=== PATIENT | female | born 1955 | race Caucasian/White ===

== ENCOUNTER → 2017-02-08 | Outpatient (CLI) | payer BC ==
[~2017-02-08] MED LIST: ALLOPURINOL5 GM; ASPIRIN81 M2; LASIX80 MG; VOLTAREN75 MG PO; ZESTRIL2.5 MG
--- NOTE | ~2017-02-08 | CT2 ---
[facility] A Service of [facility] & [facility] RADIOLOGY TEXT RESULTS PATIENT: LORA AGUILERA LOCATION: [facility] : 55 UNIT #: [id number] AGE: [address]: CHITRA LEBRON MD SEX: F ORDER DR: [id number] [address] [address] [id number] MR#: [id number] #: [id number] NAME: LORA AGUILERA : 1955 SEX: F STUDY DATE/TIME: 02/08/2017 16:43 UNIT: [facility] ROOM: STUDY DESCRIPTION: CT Abd and Pelv W Cont Attending Physician: Sol Lebron M.D. Referring Physician: Sol Lebron M.D. Ordering Physician: Sol Lebron M.D. Primary Care Physician: Sol Leborn M.D. MEDICAL IMAGING REPORT This report is preliminary unless electronic signature is present. EXAM CT abdomen and pelvis, 02/08/2017 HISTORY Left lower quadrant pain for 2 days. Gout, high blood pressure, cholecystectomy, tubal ligation. TECHNIQUE CT abdomen and pelvis performed with intravascular administration 100 mL Isovue-370. Enteric contrast also administered. This CT exam was performed with one or more of the following radiation dose reduction techniques: Automatic exposure control, adjustment of mA and/or kV according to patient size, and iterative reconstruction. COMPARISON 11/28/2013 FINDINGS The lung bases are clear. Heart upper limits of normal in size. Liver unremarkable. Status post cholecystectomy. No biliary ductal dilatation. Spleen and small accessory spleen stable. The pancreas is unremarkable. Indeterminate approximately 1 cm relatively hypodense nodule in the left adrenal body more conspicuous than on prior examination. Not clearly an adenoma on basis of this study alone. Lack of any significant change in size from prior examination favors benign etiology. Best fully characterized with adrenal-protocol MRI, if patient is candidate, or adrenal-protocol CT. Right adrenal gland unremarkable. Bilateral kidneys unremarkable. CT PELVIS: No inguinal adenopathy. Urinary bladder, uterus, adnexal regions unremarkable. No pelvic or retroperitoneal adenopathy. Distal esophagus, stomach, small bowel, appendix normal. Near pancolonic STS. [facility] A Service of [facility] RADIOLOGY TEXT RESULTS PATIENT: LORA AGUILERA LOCATION: [facility] : 55 UNIT #: [id number] AGE: [address]: CHITRA LEBRON MD SEX: F ORDER DR: diverticulosis most pronounced in the left hemicolon. In the distal descending colon, there is a focally inflamed diverticulum along the anterior aspect of the descending colon. Mild peridiverticular fat stranding and haziness. No free air, fluid collection or abscess. No resulting obstruction. Remainder of colon unremarkable. Umbilical hernia containing only fat. The bony structures show degenerative change in the spine. Minimal, grade I anterolisthesis L4 on L5 likely due to disc and facet degenerative changes. Narrowing of the bilateral neural foramina L4-L5, L5-S1 due predominantly to facet degenerative changes. IMPRESSION 1. Findings discussed with Dr. Torres (covering for Dr. Lebron) at time of this dictation. Along the anterior aspect of the distal descending colon, there is a focally inflamed diverticulum (see axial image 57). Mild adjacent fat stranding and haziness. No free air, fluid collection or abscess. The remainder of the colon is notable for extensive pancolonic uncomplicated diverticulosis. 2. Small bowel and appendix normal. 3. Status post cholecystectomy. No biliary obstruction. 4. Indeterminate 1 cm, relatively hypodense left adrenal nodule not significantly changed from 2014 and probably an adenoma. It is best fully characterized, if not previously evaluated, with adrenal-protocol MRI, or CT. 5. Uncomplicated umbilical hernia containing only fat. 6. Kidneys unremarkable. 7. Degenerative changes in the spine as described above. If it would assist in management, lumbar spine could be further evaluated with dedicated elective MRI or CT. Dictated by... Zachary Tian M.D. THIS IS AN ELECTRONICALLY VERIFIED REPORT Zachary Tian M.D. at 02/09/2017 3:50 PM TITUS/millicent TD: 02/08/2017 22:19 JOB #: [id number] MEDICAL IMAGING REPORT Page 1 of 1
[2017-02-08 15:35] LABS: POC - CREATININE 1.05 mg/dL (0.44-1.03)
== END | disposition home or self-care (01) ==
LOC: SCT 15:20
PROVIDERS: Family Medicine
DX: R10.32 Left lower quadrant pain (principal); K42.9 Umbilical hernia without obstruction or gangrene; E27.8 Other specified disorders of adrenal gland; M47.896 Other spondylosis, lumbar region; M47.897 Other spondylosis, lumbosacral region; K57.32 Diverticulitis of large intestine without perforation or abscess without bleeding; Z90.49 Acquired absence of other specified parts of digestive tract
CPT/HCPCS: 74177; 82565; Q9967